=== PATIENT | male | born 1995 | race Caucasian/White ===

== ENCOUNTER 2025-03-13 08:00 | Emergency (ER) | payer OTHER ==
[~2025-03-13] VITALS: Ht 172.7 cm; Wt 77.0 kg
[2025-03-13 08:06] VITALS: O2SAT 97
[2025-03-13] MEDS: TETANUS, DIPHTHERIA, PERTUSSIS VAC/PF 0.5ML (>10YR OLD) IM ONE (09:08)
[2025-03-13] MEDS: HYDROCODONE/ACETAMINOPHEN 5/325MG TABLET PO ONE (09:13)
[2025-03-13] MEDS: IBUPROFEN 600MG TABLET PO ONE (09:13)
[2025-03-13] MEDS: BACITRACIN ZINC OINT UDPKT TOP ONE (09:13)
[2025-03-13] MEDS: LIDOCAINE HCL/PF 1% 10 MG/ML 5ML VIAL INFIL ONE (09:18)
[2025-03-13 11:47] VITALS: BP 127/77; PULSE 75; RESP 16; TEMP 36.6; O2SAT 96
== END 2025-03-13 12:54 | disposition home or self-care (01) ==
LOC: ER 08:00
DX: S91.312A Laceration without foreign body, left foot, initial encounter (principal); S90.32XA Contusion of left foot, initial encounter; J45.909 Unspecified asthma, uncomplicated; X58.XXXA Exposure to other specified factors, initial encounter; Y93.89 Activity, other specified; Y92.89 Other specified places as the place of occurrence of the external cause; Y99.8 Other external cause status
CPT/HCPCS: 73630; 73700; 12001; 99284; J2003; Z7610 ×2; 29515